=== PATIENT | male | born 1975 | race Caucasian/White ===

== ENCOUNTER 2020-09-02 15:05 | Observation (INO) | payer OTHER ==
[~2020-09-02] VITALS: Ht 177.8 cm; Wt 99.8 kg
[2020-09-02 15:45] LABS: HEMOGLOBIN 14.7 gm/dl (14.0-17.5); RED BLOOD COUNT 4.71 M/UL (4.20-5.50); WHITE BLOOD COUNT 9.3 K/UL (4.5-11.0)
[2020-09-02 16:20] LABS: BUN/CREATININE RATIO 14 (0-10)
[2020-09-02] MEDS ORDERED: LAMOTRIGINE200 MG PO (17:44)
[2020-09-02] MEDS ORDERED: PAXIL 20 MG TAB20 MG PO (17:45)
[2020-09-02] MEDS ORDERED: MULTIPLE VITAM1 EACH PO (17:46)
[2020-09-03 03:26] LABS: HEMOGLOBIN 14.5 gm/dl (14.0-17.5); RED BLOOD COUNT 4.74 M/UL (4.20-5.50); WHITE BLOOD COUNT 7.2 K/UL (4.5-11.0)
[2020-09-03 04:06] LABS: BUN/CREATININE RATIO 14 (0-10)
[2020-09-03] MEDS ORDERED: ATORVASTATIN CA20 MG PO (16:03)
[2020-09-03] MEDS ORDERED: ASPIRIN EC81 MG PO (16:03)
== END 2020-09-03 16:59 | disposition home or self-care (01) ==
LOC: ER1 15:05 → CDU 17:26 → M/S 17:26
PROVIDERS: Emergency Medicine; Physician Assistant; ADMIT Internal Medicine
DX: R07.89 Other chest pain (principal); E87.6 Hypokalemia; F41.9 Anxiety disorder, unspecified; F39 Unspecified mood [affective] disorder; F17.210 Nicotine dependence, cigarettes, uncomplicated; E66.9 Obesity, unspecified; Z68.31 Body mass index [BMI] 31.0-31.9, adult; Z98.1 Arthrodesis status; Z90.49 Acquired absence of other specified parts of digestive tract; Z20.822 Contact with and (suspected) exposure to COVID-19; Z79.899 Other long term (current) drug therapy; Z86.16 Personal history of COVID-19
CPT/HCPCS: ECHO; 36415; 71045; 78452; 80048; 80053; 82550; 82553; 83735; 83874; 84484; 85025; 85379; 93005; 93017; 93306; 96374; 96375; 99285; A9502; G0008; G0378; U0002